=== PATIENT | male | born 1950 | race African-American/Black ===

== ENCOUNTER 2020-01-08 14:21 | Inpatient (IN) ==
[2020-01-08 16:49] LABS: Basophils % 0.2 % (0.0-0.8); Eosinophils % 0.3 % (0.00-10.9); Hematocrit 33.7 VOL% (42.0-52.0); Hemoglobin 10.5 GM/DL (14.0-18.0); Immature Granulocytes % 0.8 %; Immature Granulocytes Absolute 0.09 #; Lymphocytes # 2.1 10*3/uL (1.4-4.0); Lymphocytes % 17.7 % (21.2-54.2); Mean Corpuscular HGB Conc 31.2 GM/DL (32-36); Mean Corpuscular Volume 86.2 FL (87-102); Mean Platelet Volume 8.5 FL (9.6-12.0); Platelet Count 372 T/CUMM (130-400); Red Blood Count 3.91 MC/CUMM (3.8-5.5); Red Cell Distribution Width 14.4 % (9.3-17.3); White Blood Count 11.9 T/CUMM (4-12)
[2020-01-08 16:59] LABS: Apearance,Urine CLEAR (Clear); Bilirubin,Urine Negative (Negative); Blood, Urine Negative (Negative); Glucose,Urine (UA) Negative (Negative); Ketones,Urine Negative (Negative); Nitrite,Urine Negative (Negative); Protein,Urine Negative; RBC,Urine 4 /HPF (0-4); Sperm,Urine Occasional /HPF (Negative); Squamous Epithelial Cell,Urine Occasional /HPF (0-10); Urine Color Yellow (Yellow); Urine Specific Gravity 1.048 (1.001-1.035); Urine Urobilinogen < 2.0 EU/DL (0.2-1.0); WBC,Urine 2 /HPF (0-6)
[2020-01-08 17:05] LABS: Albumin 2.8 G/DL (3.4-5.0); Bilirubin,Total 0.4 MG/DL (0.2-1.0); Calcium 10.5 MG/DL (8.5-10.1); Osmolality,Calculated 276.2 MOS/KG (273-304); Total Protein 8.1 G/DL (6.4-8.3)
[2020-01-08] MEDS ORDERED: LEVOFLOXACIN INJ 500 MG in PREMIX 1 EACH IV STA (17:24)
[2020-01-08] MEDS ORDERED: SODIUM CHLORIDE 0.9% 1,000 ML IV STA (17:24)
[2020-01-08] MEDS ORDERED: GLUCAGON 1 MG VIAL IM PRN (17:47)
[2020-01-08] MEDS ORDERED: DEXTROSE 50% 25 GM/50 ML VIAL IV PRN (17:47)
[2020-01-08] MEDS ORDERED: cefTRIAXone 1,000 MG in SODIUM CHLORIDE 0.9% 100 ML IV SCH (18:30)
[2020-01-08] MEDS ORDERED: LORazepam 2 MG/1 ML VIAL IV PRN (21:00)
[2020-01-08] MEDS: SODIUM CHLORIDE 0.9% 1,000 ML IV SCH (22:17)
[2020-01-08] MEDS: INSULIN LISPRO 100 UNIT/ML SUBCUT SCH (22:18)
[2020-01-09] MEDS: ACETAMINOPHEN 325 MG TABLET PO PRN (00:51)
[2020-01-09 06:31] LABS: Basophils % 0.3 % (0.0-0.8); Eosinophils # 0.1 10*3/uL (0.0-0.87); Eosinophils % 0.8 % (0.00-10.9); Hematocrit 29.8 VOL% (42.0-52.0); Hemoglobin 9.6 GM/DL (14.0-18.0); Immature Granulocytes % 0.5 %; Immature Granulocytes Absolute 0.05 #; Lymphocytes # 2.9 10*3/uL (1.4-4.0); Lymphocytes % 28.1 % (21.2-54.2); Mean Corpuscular HGB Conc 32.2 GM/DL (32-36); Mean Corpuscular Volume 83.9 FL (87-102); Mean Platelet Volume 8.7 FL (9.6-12.0); Monocytes % 8.4 % (1.7-12.7); Neutrophils % 61.9 % (38.7-73.9); Platelet Count 347 T/CUMM (130-400); Red Blood Count 3.55 MC/CUMM (3.8-5.5); Red Cell Distribution Width 14.4 % (9.3-17.3); White Blood Count 10.3 T/CUMM (4-12)
[2020-01-09 07:07] LABS: % Iron Saturation 32.6 % (18-50)
[2020-01-09 07:14] LABS: Calcium 9.8 MG/DL (8.5-10.1); Osmolality,Calculated 288.3 MOS/KG (273-304); Risk Ratio 2.94; Thyroid Stimulating Hormone 1.46 uIU/ml (0.358-3.74); VLDL CHOLESTEROL 14.4 MG/DL
[2020-01-09] MEDS: INSULIN LISPRO 100 UNIT/ML SUBCUT SCH ×4 (07:42→21:32)
[2020-01-09 09:02] LABS: Folate 17.3 NG/ML (5.4-24.0)
[2020-01-09] MEDS: PANTOPRAZOLE 40 MG TABLET PO SCH (10:36)
[2020-01-09] MEDS: SODIUM CHLORIDE 0.9% 1,000 ML IV SCH (10:37)
[2020-01-09] MEDS: cefTRIAXone 1,000 MG in SYRINGE 1 EACH IV SCH (10:37)
[2020-01-09] MEDS: atenoloL 50 MG TABLET PO SCH (14:50)
[2020-01-09] MEDS: ASPIRIN 325 MG TABLET PO SCH (14:50)
[2020-01-09] MEDS: lisinopriL 20 MG TABLET PO SCH (14:50)
[2020-01-09] MEDS: hydroCHLOROthiazide 25 MG TABLET PO SCH (14:50)
[2020-01-09] MEDS: ATORVASTATIN 40 MG TABLET PO SCH (14:50)
[2020-01-09] MEDS: PENTOXIFYLLINE 400 MG TABLET PO SCH ×2 (14:50→21:31)
[2020-01-09] MEDS: oxyCODONE/ACETAMINOPHEN 5-325 MG TABLET PO PRN (18:05)
[2020-01-09] MEDS: GABAPENTIN 300 MG CAPSULE PO SCH ×2 (18:06→21:31)
[2020-01-10 06:01] LABS: Basophils % 0.1 % (0.0-0.8); Eosinophils # 0.1 10*3/uL (0.0-0.87); Eosinophils % 0.7 % (0.00-10.9); Hematocrit 31.4 VOL% (42.0-52.0); Hemoglobin 9.8 GM/DL (14.0-18.0); Immature Granulocytes % 0.4 %; Immature Granulocytes Absolute 0.04 #; Lymphocytes # 2.2 10*3/uL (1.4-4.0); Lymphocytes % 20.8 % (21.2-54.2); Mean Corpuscular HGB Conc 31.2 GM/DL (32-36); Mean Corpuscular Volume 85.6 FL (87-102); Mean Platelet Volume 8.4 FL (9.6-12.0); Monocytes % 7.5 % (1.7-12.7); Neutrophils % 70.5 % (38.7-73.9); Platelet Count 333 T/CUMM (130-400); Red Blood Count 3.67 MC/CUMM (3.8-5.5); Red Cell Distribution Width 14.3 % (9.3-17.3); White Blood Count 10.7 T/CUMM (4-12)
[2020-01-10 06:25] LABS: Calcium 9.6 MG/DL (8.5-10.1); Osmolality,Calculated 279.4 MOS/KG (273-304)
[2020-01-10] MEDS: INSULIN LISPRO 100 UNIT/ML SUBCUT SCH ×4 (07:09→21:02)
[2020-01-10] MEDS: SODIUM CHLORIDE 0.9% 1,000 ML IV SCH ×3 (09:56→23:48)
[2020-01-10] MEDS: lisinopriL 20 MG TABLET PO SCH (10:40)
[2020-01-10] MEDS: hydroCHLOROthiazide 25 MG TABLET PO SCH (10:40)
[2020-01-10] MEDS: ASPIRIN 325 MG TABLET PO SCH (10:40)
[2020-01-10] MEDS: ATORVASTATIN 40 MG TABLET PO SCH (10:41)
[2020-01-10] MEDS: atenoloL 50 MG TABLET PO SCH (10:41)
[2020-01-10] MEDS: PENTOXIFYLLINE 400 MG TABLET PO SCH ×2 (10:41→21:02)
[2020-01-10] MEDS: cefTRIAXone 1,000 MG in SYRINGE 1 EACH IV SCH (10:41)
[2020-01-10] MEDS: PANTOPRAZOLE 40 MG TABLET PO SCH (10:41)
[2020-01-10] MEDS: GABAPENTIN 300 MG CAPSULE PO SCH ×3 (10:44→21:02)
[2020-01-10] MEDS: oxyCODONE/ACETAMINOPHEN 5-325 MG TABLET PO PRN ×2 (10:55→21:01)
[2020-01-10] MEDS ORDERED: ceFAZolin 1,000 MG in SYRINGE 1 EACH IV ONE (14:56)
[2020-01-11 06:08] LABS: Basophils % 0.3 % (0.0-0.8); Eosinophils # 0.1 10*3/uL (0.0-0.87); Hematocrit 27.4 VOL% (42.0-52.0); Hemoglobin 8.6 GM/DL (14.0-18.0); Immature Granulocytes % 0.6 %; Immature Granulocytes Absolute 0.06 #; Lymphocytes # 2.5 10*3/uL (1.4-4.0); Lymphocytes % 23.7 % (21.2-54.2); Mean Corpuscular HGB Conc 31.4 GM/DL (32-36); Mean Corpuscular Volume 84.8 FL (87-102); Mean Platelet Volume 8.7 FL (9.6-12.0); Neutrophils % 66.4 % (38.7-73.9); Platelet Count 306 T/CUMM (130-400); Red Blood Count 3.23 MC/CUMM (3.8-5.5); Red Cell Distribution Width 14.5 % (9.3-17.3); White Blood Count 10.3 T/CUMM (4-12)
[2020-01-11] MEDS ORDERED: LACTATED RINGERS 1,000 ML IV SCH (06:30)
[2020-01-11 07:04] LABS: Calcium 9.5 MG/DL (8.5-10.1); Osmolality,Calculated 276.5 MOS/KG (273-304)
[2020-01-11] MEDS ORDERED: ceFAZolin 1,000 MG in SYRINGE 1 EACH IV ONE (07:30)
[2020-01-11] MEDS ORDERED: BUPIVACAINE 0.5% 50 ML VIAL ONE (08:36)
[2020-01-11] MEDS: cefTRIAXone 1,000 MG in SYRINGE 1 EACH IV SCH (08:44)
[2020-01-11] MEDS ORDERED: GLUCAGON 1 MG VIAL IM PRN (09:34)
[2020-01-11] MEDS ORDERED: DEXTROSE 50% 25 GM/50 ML VIAL IV PRN (09:34)
[2020-01-11] MEDS: hydroCHLOROthiazide 25 MG TABLET PO SCH (09:42)
[2020-01-11] MEDS: ATORVASTATIN 40 MG TABLET PO SCH (09:42)
[2020-01-11] MEDS: ASPIRIN 325 MG TABLET PO SCH (09:42)
[2020-01-11] MEDS: GABAPENTIN 300 MG CAPSULE PO SCH ×3 (09:42→21:32)
[2020-01-11] MEDS: INSULIN LISPRO 100 UNIT/ML SUBCUT SCH ×4 (09:42→21:36)
[2020-01-11] MEDS: PENTOXIFYLLINE 400 MG TABLET PO SCH ×2 (09:43→21:32)
[2020-01-11] MEDS: atenoloL 50 MG TABLET PO SCH (09:43)
[2020-01-11] MEDS: lisinopriL 20 MG TABLET PO SCH (09:43)
[2020-01-11] MEDS: PANTOPRAZOLE 40 MG TABLET PO SCH (09:43)
[2020-01-11] MEDS ORDERED: propofoL 200 MG/20 ML VIAL IV ONE (10:11)
[2020-01-11] MEDS ORDERED: fentaNYL 100 MCG/2 ML VIAL ONE (10:11)
[2020-01-11] MEDS ORDERED: MIDAZOLAM 2 MG/2 ML VIAL ONE (10:11)
[2020-01-11] MEDS ORDERED: SODIUM CHLORIDE 0.9% 100 ML IV ONE (10:11)
[2020-01-11] MEDS ORDERED: ESMOLOL 100 MG/10 ML VIAL IV ONE (10:11)
[2020-01-11] MEDS ORDERED: LIDOCAINE 2% 5 ML VIAL ONE (10:11)
[2020-01-11] MEDS: INSULIN REGULAR 100 UNIT/ML SUBCUT SCH ×3 (11:37→21:36)
[2020-01-11] MEDS: oxyCODONE/ACETAMINOPHEN 5-325 MG TABLET PO PRN (12:15)
[2020-01-11] MEDS: SODIUM CHLORIDE 0.9% 1,000 ML IV SCH (12:59)
[2020-01-12] MEDS: ACETAMINOPHEN 325 MG TABLET PO PRN (01:10)
[2020-01-12] MEDS: SODIUM CHLORIDE 0.9% 1,000 ML IV SCH ×2 (01:19→14:59)
[2020-01-12 04:32] LABS: Basophils % 0.1 % (0.0-0.8); Eosinophils % 0.2 % (0.00-10.9); Hematocrit 26.5 VOL% (42.0-52.0); Hemoglobin 8.4 GM/DL (14.0-18.0); Immature Granulocytes % 0.6 %; Immature Granulocytes Absolute 0.06 #; Lymphocytes # 1.9 10*3/uL (1.4-4.0); Lymphocytes % 19.7 % (21.2-54.2); Mean Corpuscular HGB Conc 31.7 GM/DL (32-36); Mean Corpuscular Volume 84.4 FL (87-102); Mean Platelet Volume 8.5 FL (9.6-12.0); Monocytes % 8.2 % (1.7-12.7); Neutrophils % 71.2 % (38.7-73.9); Platelet Count 321 T/CUMM (130-400); Red Blood Count 3.14 MC/CUMM (3.8-5.5); Red Cell Distribution Width 14.4 % (9.3-17.3); White Blood Count 9.4 T/CUMM (4-12)
[2020-01-12 04:51] LABS: Calcium 9.4 MG/DL (8.5-10.1); Osmolality,Calculated 278.4 MOS/KG (273-304)
[2020-01-12] MEDS ORDERED: MAGNESIUM SULF RIDER 4 GM in PREMIX 1 EACH IV PRN (06:54)
[2020-01-12] MEDS ORDERED: MAGNESIUM SULF RIDER 2 GM in PREMIX 1 EACH IV PRN (06:54)
[2020-01-12] MEDS: INSULIN LISPRO 100 UNIT/ML SUBCUT SCH ×4 (07:31→22:16)
[2020-01-12] MEDS: INSULIN REGULAR 100 UNIT/ML SUBCUT SCH ×4 (08:50→22:16)
[2020-01-12] MEDS: oxyCODONE/ACETAMINOPHEN 5-325 MG TABLET PO PRN ×2 (08:51→22:16)
[2020-01-12] MEDS: GABAPENTIN 300 MG CAPSULE PO SCH ×3 (08:52→22:16)
[2020-01-12] MEDS: lisinopriL 20 MG TABLET PO SCH (08:53)
[2020-01-12] MEDS: PANTOPRAZOLE 40 MG TABLET PO SCH (08:53)
[2020-01-12] MEDS: POTASSIUM CHLORIDE 20 MEQ TABLET PO PRN ×3 (08:54→13:54)
[2020-01-12] MEDS: ASPIRIN 325 MG TABLET PO SCH (08:54)
[2020-01-12] MEDS: hydroCHLOROthiazide 25 MG TABLET PO SCH (08:54)
[2020-01-12] MEDS: cefTRIAXone 1,000 MG in SYRINGE 1 EACH IV SCH (08:55)
[2020-01-12] MEDS: PENTOXIFYLLINE 400 MG TABLET PO SCH ×2 (08:55→22:15)
[2020-01-12] MEDS: atenoloL 50 MG TABLET PO SCH (08:55)
[2020-01-12] MEDS: ATORVASTATIN 40 MG TABLET PO SCH (08:55)
[2020-01-13 05:43] LABS: Basophils % 0.3 % (0.0-0.8); Eosinophils # 0.1 10*3/uL (0.0-0.87); Eosinophils % 0.5 % (0.00-10.9); Hematocrit 29.3 VOL% (42.0-52.0); Immature Granulocytes % 0.9 %; Lymphocytes # 2.4 10*3/uL (1.4-4.0); Lymphocytes % 21.6 % (21.2-54.2); Mean Corpuscular HGB Conc 30.7 GM/DL (32-36); Mean Corpuscular Volume 86.9 FL (87-102); Mean Platelet Volume 9.1 FL (9.6-12.0); Monocytes % 10.2 % (1.7-12.7); Neutrophils % 66.5 % (38.7-73.9); Platelet Count 335 T/CUMM (130-400); Red Blood Count 3.37 MC/CUMM (3.8-5.5); Red Cell Distribution Width 14.6 % (9.3-17.3); White Blood Count 11.3 T/CUMM (4-12)
[2020-01-13 07:01] LABS: Calcium 9.5 MG/DL (8.5-10.1)
[2020-01-13] MEDS: oxyCODONE/ACETAMINOPHEN 5-325 MG TABLET PO PRN ×2 (08:51→15:52)
[2020-01-13] MEDS: PENTOXIFYLLINE 400 MG TABLET PO SCH ×2 (08:52→21:20)
[2020-01-13] MEDS: atenoloL 50 MG TABLET PO SCH (08:52)
[2020-01-13] MEDS: lisinopriL 20 MG TABLET PO SCH (08:53)
[2020-01-13] MEDS: hydroCHLOROthiazide 25 MG TABLET PO SCH (08:53)
[2020-01-13] MEDS: ASPIRIN 325 MG TABLET PO SCH (08:53)
[2020-01-13] MEDS: ATORVASTATIN 40 MG TABLET PO SCH (08:53)
[2020-01-13] MEDS: cefTRIAXone 1,000 MG in SYRINGE 1 EACH IV SCH (08:53)
[2020-01-13] MEDS: PANTOPRAZOLE 40 MG TABLET PO SCH (08:53)
[2020-01-13] MEDS: GABAPENTIN 300 MG CAPSULE PO SCH ×3 (08:53→21:23)
[2020-01-13] MEDS: SODIUM CHLORIDE 0.9% 1,000 ML IV SCH ×2 (08:54→21:20)
[2020-01-13] MEDS: INSULIN REGULAR 100 UNIT/ML SUBCUT SCH ×4 (11:03→21:21)
[2020-01-13] MEDS: INSULIN LISPRO 100 UNIT/ML SUBCUT SCH ×4 (11:04→21:22)
[2020-01-13] MEDS ORDERED: POLYETHYLENE GLYCOL POWDER 17 GM PACK PO PRN (22:16)
[2020-01-13] MEDS ORDERED: MAGNESIUM HYDROXIDE SUSP 30 ML UDCUP PO PRN (22:17)
[2020-01-14 06:28] LABS: Basophils % 0.3 % (0.0-0.8); Eosinophils # 0.1 10*3/uL (0.0-0.87); Eosinophils % 0.9 % (0.00-10.9); Hematocrit 27.4 VOL% (42.0-52.0); Hemoglobin 8.6 GM/DL (14.0-18.0); Immature Granulocytes % 0.6 %; Immature Granulocytes Absolute 0.06 #; Lymphocytes # 1.9 10*3/uL (1.4-4.0); Lymphocytes % 20.6 % (21.2-54.2); Mean Corpuscular HGB Conc 31.4 GM/DL (32-36); Mean Corpuscular Volume 84.6 FL (87-102); Mean Platelet Volume 8.9 FL (9.6-12.0); Monocytes % 6.9 % (1.7-12.7); Neutrophils % 70.7 % (38.7-73.9); Platelet Count 348 T/CUMM (130-400); Red Blood Count 3.24 MC/CUMM (3.8-5.5); Red Cell Distribution Width 14.7 % (9.3-17.3); White Blood Count 9.3 T/CUMM (4-12)
[2020-01-14 06:48] LABS: Calcium 9.4 MG/DL (8.5-10.1); Osmolality,Calculated 274.7 MOS/KG (273-304)
[2020-01-14] MEDS ORDERED: PHENYLEPHRINE DRIP 20 MG/250 ML PREMIX IV ONE (06:49)
[2020-01-14] MEDS ORDERED: NITROGLYCERIN DRIP 50 MG/250 ML BOTTLE IV ONE ×2 (06:49→19:22)
[2020-01-14] MEDS ORDERED: HEPARIN/NACL 0.9% 2 UNITS/ML 500 ML IV ONE (06:49)
[2020-01-14] MEDS ORDERED: DEXMEDETOMIDINE 200 MCG/2 ML VIAL ONE (06:49)
[2020-01-14] MEDS ORDERED: MORPHINE 10 MG/10 ML VIAL ONE (06:49)
[2020-01-14] MEDS: INSULIN LISPRO 100 UNIT/ML SUBCUT SCH ×4 (07:32→20:35)
[2020-01-14] MEDS: INSULIN REGULAR 100 UNIT/ML SUBCUT SCH ×4 (07:32→20:35)
[2020-01-14] MEDS: atenoloL 50 MG TABLET PO SCH ×2 (07:37→08:52)
[2020-01-14] MEDS: lisinopriL 20 MG TABLET PO SCH ×2 (07:37→08:52)
[2020-01-14] MEDS: SODIUM CHLORIDE 0.9% 1,000 ML IV SCH (07:50)
[2020-01-14] MEDS: PENTOXIFYLLINE 400 MG TABLET PO SCH (09:00)
[2020-01-14] MEDS: ASPIRIN 325 MG TABLET PO SCH (09:00)
[2020-01-14] MEDS ORDERED: VANCOMYCIN INJ 1,000 MG in SODIUM CHLORIDE 0.9% 250 ML IV ONE (09:36)
[2020-01-14] MEDS: cefTRIAXone 1,000 MG in SYRINGE 1 EACH IV SCH (10:36)
[2020-01-14] MEDS ORDERED: SUGAMMADEX 200 MG/2 ML VIAL IV ONE (11:01)
[2020-01-14 12:00] LABS: Apearance,Urine CLEAR (Clear); Bilirubin,Urine Negative (Negative); Blood, Urine Small mg/dL (Negative); Glucose,Urine (UA) Negative (Negative); Ketones,Urine Negative (Negative); Mucus,Urine Occasional /LPF (Occasional); Nitrite,Urine Negative (Negative); Protein,Urine Negative; RBC,Urine 3 /HPF (0-4); Urine Color Yellow (Yellow); Urine Specific Gravity 1.015 (1.001-1.035); WBC,Urine <1 /HPF (0-6)
[2020-01-14 12:13] LABS: Hematocrit 27.9 VOL% (42.0-52.0); Hemoglobin 8.9 GM/DL (14.0-18.0)
[2020-01-14] MEDS ORDERED: MIDAZOLAM 2 MG/2 ML VIAL IV ONE (12:18)
[2020-01-14 12:29] LABS: Calcium 9.2 MG/DL (8.5-10.1); Osmolality,Calculated 274.7 MOS/KG (273-304)
[2020-01-14] MEDS ORDERED: LIDOCAINE 2% 5 ML VIAL ONE (12:43)
[2020-01-14] MEDS ORDERED: KETOROLAC 30 MG/1 ML VIAL ONE (12:43)
[2020-01-14] MEDS ORDERED: DESFLURANE 1 UNIT/15 MINUTE INH ONE (12:43)
[2020-01-14] MEDS ORDERED: ALBUMIN 5% 12.5 GM/250 ML VIAL IV ONE (12:43)
[2020-01-14] MEDS ORDERED: HEPARIN 10,000 UNIT/10 ML VIAL ONE (12:43)
[2020-01-14] MEDS ORDERED: SODIUM CHLORIDE 0.9% 1,000 ML IV ONE (12:44)
[2020-01-14] MEDS ORDERED: ETOMIDATE 40 MG/20 ML VIAL IV ONE (12:44)
[2020-01-14] MEDS ORDERED: PROTAMINE SULFATE 50 MG/5 ML VIAL IV ONE (12:44)
[2020-01-14] MEDS ORDERED: LACTATED RINGERS 1,000 ML IV ONE (12:44)
[2020-01-14] MEDS ORDERED: ROCURONIUM 100 MG/10 ML VIAL IV ONE (12:44)
[2020-01-14] MEDS: ATORVASTATIN 40 MG TABLET PO SCH (13:43)
[2020-01-14] MEDS: hydroCHLOROthiazide 25 MG TABLET PO SCH (13:43)
[2020-01-14] MEDS: GABAPENTIN 300 MG CAPSULE PO SCH ×2 (13:44→18:13)
[2020-01-14] MEDS: PANTOPRAZOLE 40 MG TABLET PO SCH (13:44)
[2020-01-14] MEDS ORDERED: PHENYLEPHRINE DRIP 40 MG/250 ML PREMIX IV PRN (13:45)
[2020-01-14] MEDS: fentaNYL 2 MCG/ROPIV 0.2% EPID 100 ML EPIDURAL SCH (13:45)
[2020-01-14] MEDS: LACTATED RINGERS 1,000 ML IV SCH (13:46)
[2020-01-14] MEDS ORDERED: PHENYLEPHRINE DRIP 40 MG/250 ML PREMIX IV ONE (13:50)
[2020-01-14] MEDS: cefOXitin 1,000 MG in SYRINGE 1 EACH IV SCH (16:00)
[2020-01-14] MEDS ORDERED: SODIUM CHLORIDE 0.9% 1,000 ML IV PRN (16:23)
[2020-01-14] MEDS: METOCLOPRAMIDE 10 MG/2 ML VIAL IV SCH (18:29)
[2020-01-14] MEDS ORDERED: METOPROLOL TARTRATE 5 MG/5 ML VIAL IV ONE (19:13)
[2020-01-14] MEDS: METOPROLOL TARTRATE 5 MG/5 ML VIAL IV SCH (19:15)
[2020-01-14] MEDS ORDERED: NITROGLYCERIN DRIP 50 MG/250 ML BOTTLE IV PRN (19:20)
[2020-01-14] MEDS: VANCOMYCIN INJ 1,000 MG in SODIUM CHLORIDE 0.9% 250 ML IV SCH (20:49)
[2020-01-15] MEDS: cefOXitin 1,000 MG in SYRINGE 1 EACH IV SCH ×3 (00:04→19:09)
[2020-01-15] MEDS: METOCLOPRAMIDE 10 MG/2 ML VIAL IV SCH ×4 (00:08→19:10)
[2020-01-15] MEDS: METOPROLOL TARTRATE 5 MG/5 ML VIAL IV SCH ×5 (00:12→19:09)
[2020-01-15] MEDS: LACTATED RINGERS 1,000 ML IV SCH ×4 (00:14→19:02)
[2020-01-15 05:52] LABS: Basophils % 0.1 % (0.0-0.8); Eosinophils % 0.1 % (0.00-10.9); Hematocrit 30.1 VOL% (42.0-52.0); Hemoglobin 9.8 GM/DL (14.0-18.0); Immature Granulocytes % 0.9 %; Immature Granulocytes Absolute 0.11 #; Lymphocytes # 1.2 10*3/uL (1.4-4.0); Lymphocytes % 9.8 % (21.2-54.2); Mean Corpuscular HGB Conc 32.6 GM/DL (32-36); Mean Corpuscular Volume 85.5 FL (87-102); Mean Platelet Volume 8.6 FL (9.6-12.0); Monocytes % 5.2 % (1.7-12.7); Neutrophils % 83.9 % (38.7-73.9); Platelet Count 275 T/CUMM (130-400); Red Blood Count 3.52 MC/CUMM (3.8-5.5); Red Cell Distribution Width 14.7 % (9.3-17.3); White Blood Count 11.9 T/CUMM (4-12)
[2020-01-15 06:00] LABS: Calcium 8.8 MG/DL (8.5-10.1); Osmolality,Calculated 277.7 MOS/KG (273-304)
[2020-01-15 06:11] LABS: Band Neutrophils 1 % (0-10); Hypochromasia 1+; Lymphocytes 11 % (20-55); Ovalocytes Slight; Platelet Estimate Adequate; Segmented Neutrophils 81 % (50-85); Total Cells Counted 100
[2020-01-15] MEDS: fentaNYL 2 MCG/ROPIV 0.2% EPID 100 ML EPIDURAL SCH ×2 (06:20→08:58)
[2020-01-15] MEDS: INSULIN REGULAR 100 UNIT/ML SUBCUT SCH ×4 (07:34→21:21)
[2020-01-15] MEDS: VANCOMYCIN INJ 1,000 MG in SODIUM CHLORIDE 0.9% 250 ML IV SCH ×2 (09:14→21:37)
[2020-01-15] MEDS: SODIUM HYPOCHLORITE 0.25% IRRIG 473 ML BOTTLE TOP SCH (11:29)
[2020-01-15] MEDS: ONDANSETRON 4 MG/2 ML VIAL IV PRN (23:32)
[2020-01-16] MEDS: METOPROLOL TARTRATE 5 MG/5 ML VIAL IV SCH ×4 (01:08→17:25)
[2020-01-16] MEDS: METOCLOPRAMIDE 10 MG/2 ML VIAL IV SCH ×4 (01:09→17:28)
[2020-01-16] MEDS: cefOXitin 1,000 MG in SYRINGE 1 EACH IV SCH ×3 (01:09→18:41)
[2020-01-16] MEDS: fentaNYL 2 MCG/ROPIV 0.2% EPID 100 ML EPIDURAL SCH ×3 (02:12→20:53)
[2020-01-16] MEDS: LACTATED RINGERS 1,000 ML IV SCH (03:05)
[2020-01-16 03:55] LABS: Basophils % 0.1 % (0.0-0.8); Hematocrit 34.8 VOL% (42.0-52.0); Hemoglobin 11.1 GM/DL (14.0-18.0); Immature Granulocytes % 1.2 %; Immature Granulocytes Absolute 0.18 #; Lymphocytes # 1.1 10*3/uL (1.4-4.0); Lymphocytes % 7.2 % (21.2-54.2); Mean Corpuscular HGB Conc 31.9 GM/DL (32-36); Mean Corpuscular Volume 87.4 FL (87-102); Mean Platelet Volume 8.4 FL (9.6-12.0); Monocytes % 4.5 % (1.7-12.7); Platelet Count 344 T/CUMM (130-400); Red Blood Count 3.98 MC/CUMM (3.8-5.5); White Blood Count 15.4 T/CUMM (4-12)
[2020-01-16 04:29] LABS: Band Neutrophils 1 % (0-10); Lymphocytes 5 % (20-55); Platelet Estimate Adequate; Segmented Neutrophils 92 % (50-85); Total Cells Counted 100
[2020-01-16 04:30] LABS: Hypochromasia 1+; Microcytosis Slight
[2020-01-16 04:40] LABS: Calcium 9.3 MG/DL (8.5-10.1); Osmolality,Calculated 279.5 MOS/KG (273-304)
[2020-01-16] MEDS: VANCOMYCIN INJ 1,000 MG in SODIUM CHLORIDE 0.9% 250 ML IV SCH ×2 (09:13→21:37)
[2020-01-16] MEDS: SODIUM HYPOCHLORITE 0.25% IRRIG 473 ML BOTTLE TOP SCH (09:14)
[2020-01-16] MEDS: INSULIN REGULAR 100 UNIT/ML SUBCUT SCH ×4 (09:14→20:42)
[2020-01-16] MEDS ORDERED: GLUCAGON 1 MG VIAL IM PRN (17:01)
[2020-01-16] MEDS ORDERED: DEXTROSE 50% 25 GM/50 ML VIAL IV PRN (17:01)
[2020-01-16] MEDS: ONDANSETRON 4 MG/2 ML VIAL IV PRN (21:33)
[2020-01-17] MEDS: METOPROLOL TARTRATE 5 MG/5 ML VIAL IV SCH ×4 (00:02→18:05)
[2020-01-17] MEDS: cefOXitin 1,000 MG in SYRINGE 1 EACH IV SCH ×3 (00:51→16:49)
[2020-01-17] MEDS: METOCLOPRAMIDE 10 MG/2 ML VIAL IV SCH ×4 (00:57→18:05)
[2020-01-17 05:02] LABS: Osmolality,Calculated 277.8 MOS/KG (273-304)
[2020-01-17] MEDS: ONDANSETRON 4 MG/2 ML VIAL IV PRN (09:05)
[2020-01-17] MEDS: VANCOMYCIN INJ 1,000 MG in SODIUM CHLORIDE 0.9% 250 ML IV SCH ×2 (09:12→21:30)
[2020-01-17] MEDS: INSULIN REGULAR 100 UNIT/ML SUBCUT SCH ×4 (10:14→20:58)
[2020-01-17] MEDS ORDERED: VANCOMYCIN 500 MG VIAL ONE (10:19)
[2020-01-17] MEDS ORDERED: PHENYLEPHRINE DRIP 20 MG/250 ML PREMIX IV ONE (12:12)
[2020-01-17] MEDS ORDERED: propofoL 200 MG/20 ML VIAL IV ONE (12:12)
[2020-01-17] MEDS ORDERED: MIDAZOLAM 2 MG/2 ML VIAL ONE (12:12)
[2020-01-17] MEDS ORDERED: SEVOFLURANE 1 UNIT/15 MINUTE INH ONE (12:12)
[2020-01-17] MEDS ORDERED: DEXAMETHASONE 4 MG/1 ML VIAL ONE (12:13)
[2020-01-17] MEDS ORDERED: ONDANSETRON 4 MG/2 ML VIAL ONE (12:13)
[2020-01-17] MEDS ORDERED: METOPROLOL TARTRATE 5 MG/5 ML VIAL IV ONE (12:13)
[2020-01-17] MEDS ORDERED: fentaNYL 100 MCG/2 ML VIAL ONE (12:13)
[2020-01-17] MEDS ORDERED: ETOMIDATE 40 MG/20 ML VIAL IV ONE (12:13)
[2020-01-17] MEDS ORDERED: PHENYLEPHRINE 1 MG/10 ML SYRINGE IV ONE (12:13)
[2020-01-17] MEDS ORDERED: LIDOCAINE 2% 5 ML VIAL ONE (12:14)
[2020-01-17] MEDS: SODIUM HYPOCHLORITE 0.25% IRRIG 473 ML BOTTLE TOP SCH (13:54)
[2020-01-17] MEDS: fentaNYL 2 MCG/ROPIV 0.2% EPID 100 ML EPIDURAL SCH ×3 (14:53→20:58)
[2020-01-18] MEDS: METOPROLOL TARTRATE 5 MG/5 ML VIAL IV SCH ×2 (00:28→06:24)
[2020-01-18] MEDS: METOCLOPRAMIDE 10 MG/2 ML VIAL IV SCH ×2 (01:18→05:13)
[2020-01-18] MEDS: cefOXitin 1,000 MG in SYRINGE 1 EACH IV SCH ×2 (01:20→07:53)
[2020-01-18 06:24] LABS: Basophils % 0.1 % (0.0-0.8); Eosinophils # 0.1 10*3/uL (0.0-0.87); Eosinophils % 0.7 % (0.00-10.9); Hematocrit 28.5 VOL% (42.0-52.0); Hemoglobin 9.3 GM/DL (14.0-18.0); Immature Granulocytes % 1.1 %; Immature Granulocytes Absolute 0.13 #; Lymphocytes # 1.3 10*3/uL (1.4-4.0); Mean Corpuscular HGB Conc 32.6 GM/DL (32-36); Mean Corpuscular Volume 85.8 FL (87-102); Mean Platelet Volume 8.7 FL (9.6-12.0); NRBC # 0.05 10*3/uL; Neutrophils % 81.1 % (38.7-73.9); Platelet Count 338 T/CUMM (130-400); Red Blood Count 3.32 MC/CUMM (3.8-5.5); Red Cell Distribution Width 15.5 % (9.3-17.3); White Blood Count 12.1 T/CUMM (4-12)
[2020-01-18 06:44] LABS: Calcium 9.1 MG/DL (8.5-10.1); Osmolality,Calculated 286.4 MOS/KG (273-304); Osmolality,Calculated 287.3 MOS/KG (273-304)
[2020-01-18] MEDS: ONDANSETRON 4 MG/2 ML VIAL IV PRN ×2 (07:50→17:39)
[2020-01-18] MEDS: INSULIN REGULAR 100 UNIT/ML SUBCUT SCH ×4 (08:33→22:07)
[2020-01-18] MEDS ORDERED: VANCOMYCIN INJ 1,000 MG in SODIUM CHLORIDE 0.9% 250 ML IV SCH (09:00)
[2020-01-18] MEDS: atenoloL 50 MG TABLET PO SCH (09:50)
[2020-01-18] MEDS: AMOXICILLIN/CLAV 875 MG TABLET PO SCH ×2 (09:50→16:50)
[2020-01-18] MEDS: METOCLOPRAMIDE 5 MG TABLET PO SCH ×3 (12:38→21:21)
[2020-01-19] MEDS: INSULIN REGULAR 100 UNIT/ML SUBCUT SCH ×4 (07:37→21:08)
[2020-01-19] MEDS: METOCLOPRAMIDE 5 MG TABLET PO SCH ×4 (07:37→21:08)
[2020-01-19] MEDS: ENOXAPARIN 40 MG/0.4 ML SYRINGE SUBCUT SCH (08:51)
[2020-01-19] MEDS: AMOXICILLIN/CLAV 875 MG TABLET PO SCH ×2 (08:51→16:46)
[2020-01-19] MEDS: atenoloL 50 MG TABLET PO SCH (08:51)
[2020-01-19] MEDS ORDERED: POTASSIUM CHLORIDE 20 MEQ TABLET PO PRN (11:53)
[2020-01-19] MEDS: POTASSIUM CHLORIDE 20 MEQ TABLET PO PRN ×2 (12:44→16:46)
[2020-01-19] MEDS: ONDANSETRON 4 MG/2 ML VIAL IV PRN (23:07)
[2020-01-20 05:19] LABS: Basophils % 0.1 % (0.0-0.8); Eosinophils % 0.4 % (0.00-10.9); Hematocrit 29.5 VOL% (42.0-52.0); Hemoglobin 9.4 GM/DL (14.0-18.0); Immature Granulocytes % 2.5 %; Immature Granulocytes Absolute 0.27 #; Lymphocytes # 1.5 10*3/uL (1.4-4.0); Lymphocytes % 13.3 % (21.2-54.2); Mean Corpuscular HGB Conc 31.9 GM/DL (32-36); Mean Corpuscular Volume 88.1 FL (87-102); Mean Platelet Volume 8.4 FL (9.6-12.0); Monocytes % 6.9 % (1.7-12.7); NRBC # 0.12 10*3/uL; Neutrophils % 76.8 % (38.7-73.9); Platelet Count 352 T/CUMM (130-400); Red Blood Count 3.35 MC/CUMM (3.8-5.5); Red Cell Distribution Width 15.6 % (9.3-17.3)
[2020-01-20 05:36] LABS: Calcium 8.9 MG/DL (8.5-10.1)
[2020-01-20] MEDS: INSULIN REGULAR 100 UNIT/ML SUBCUT SCH ×4 (08:23→20:48)
[2020-01-20] MEDS: METOCLOPRAMIDE 5 MG TABLET PO SCH ×4 (08:24→20:46)
[2020-01-20] MEDS: AMOXICILLIN/CLAV 875 MG TABLET PO SCH ×2 (08:24→16:57)
[2020-01-20] MEDS: atenoloL 50 MG TABLET PO SCH (08:24)
[2020-01-20] MEDS: ENOXAPARIN 40 MG/0.4 ML SYRINGE SUBCUT SCH (08:43)
[2020-01-20] MEDS: PANTOPRAZOLE 40 MG VIAL IV SCH ×2 (13:24→20:45)
[2020-01-20] MEDS: SODIUM CHLORIDE 0.9% 1,000 ML IV SCH (13:24)
[2020-01-20] MEDS: MIRTAZAPINE 15 MG TABLET PO SCH (20:46)
[2020-01-21] MEDS: SODIUM CHLORIDE 0.9% 1,000 ML IV SCH ×2 (02:56→16:30)
[2020-01-21 05:56] LABS: Basophils % 0.1 % (0.0-0.8); Eosinophils # 0.2 10*3/uL (0.0-0.87); Eosinophils % 1.6 % (0.00-10.9); Hematocrit 27.5 VOL% (42.0-52.0); Hemoglobin 8.5 GM/DL (14.0-18.0); Immature Granulocytes % 4.5 %; Immature Granulocytes Absolute 0.48 #; Lymphocytes # 1.9 10*3/uL (1.4-4.0); Lymphocytes % 17.4 % (21.2-54.2); Mean Corpuscular HGB Conc 30.9 GM/DL (32-36); Mean Corpuscular Volume 89.9 FL (87-102); Mean Platelet Volume 8.7 FL (9.6-12.0); Monocytes % 6.4 % (1.7-12.7); NRBC # 0.07 10*3/uL; Platelet Count 338 T/CUMM (130-400); Red Blood Count 3.06 MC/CUMM (3.8-5.5); Red Cell Distribution Width 15.5 % (9.3-17.3); White Blood Count 10.7 T/CUMM (4-12)
[2020-01-21 06:18] LABS: Calcium 8.6 MG/DL (8.5-10.1); Osmolality,Calculated 291.8 MOS/KG (273-304)
[2020-01-21] MEDS: atenoloL 50 MG TABLET PO SCH (08:55)
[2020-01-21] MEDS: PANTOPRAZOLE 40 MG VIAL IV SCH ×2 (08:55→21:05)
[2020-01-21] MEDS: METOCLOPRAMIDE 5 MG TABLET PO SCH ×4 (08:55→23:28)
[2020-01-21] MEDS: POTASSIUM CHLORIDE 20 MEQ TABLET PO PRN ×3 (08:55→13:25)
[2020-01-21] MEDS: AMOXICILLIN/CLAV 875 MG TABLET PO SCH ×2 (08:55→18:10)
[2020-01-21] MEDS: INSULIN REGULAR 100 UNIT/ML SUBCUT SCH ×4 (09:04→23:27)
[2020-01-21] MEDS: MIRTAZAPINE 15 MG TABLET PO SCH (21:06)
[2020-01-22] MEDS: SODIUM CHLORIDE 0.9% 1,000 ML IV SCH (05:40)
[2020-01-22 07:17] LABS: Basophils % 0.2 % (0.0-0.8); Eosinophils # 0.2 10*3/uL (0.0-0.87); Eosinophils % 1.5 % (0.00-10.9); Hematocrit 27.4 VOL% (42.0-52.0); Hemoglobin 8.6 GM/DL (14.0-18.0); Immature Granulocytes % 6.2 %; Immature Granulocytes Absolute 0.67 #; Lymphocytes # 1.9 10*3/uL (1.4-4.0); Lymphocytes % 17.3 % (21.2-54.2); Mean Corpuscular HGB Conc 31.4 GM/DL (32-36); Mean Corpuscular Volume 88.7 FL (87-102); Mean Platelet Volume 8.7 FL (9.6-12.0); Monocytes % 5.9 % (1.7-12.7); NRBC # 0.07 10*3/uL; Neutrophils % 68.9 % (38.7-73.9); Platelet Count 316 T/CUMM (130-400); Red Blood Count 3.09 MC/CUMM (3.8-5.5); Red Cell Distribution Width 15.5 % (9.3-17.3); White Blood Count 10.8 T/CUMM (4-12)
[2020-01-22 07:37] LABS: Calcium 8.3 MG/DL (8.5-10.1); Osmolality,Calculated 288.8 MOS/KG (273-304)
[2020-01-22 07:39] LABS: Band Neutrophils 2 % (0-10); Eosinophils 1 % (0-10); Hypochromasia 2+; Lymphocytes 13 % (20-55); Microcytosis Slight; Platelet Estimate Adequate; Segmented Neutrophils 78 % (50-85); Total Cells Counted 100
[2020-01-22] MEDS: AMOXICILLIN/CLAV 875 MG TABLET PO SCH ×2 (08:46→17:40)
[2020-01-22] MEDS: PANTOPRAZOLE 40 MG VIAL IV SCH ×2 (08:46→21:04)
[2020-01-22] MEDS: atenoloL 50 MG TABLET PO SCH (08:46)
[2020-01-22] MEDS: METOCLOPRAMIDE 5 MG TABLET PO SCH ×4 (10:05→20:57)
[2020-01-22] MEDS: INSULIN REGULAR 100 UNIT/ML SUBCUT SCH ×4 (10:05→20:56)
[2020-01-22] MEDS ORDERED: GLUCAGON 1 MG VIAL IM PRN (11:12)
[2020-01-22] MEDS ORDERED: DEXTROSE 50% 25 GM/50 ML VIAL IV PRN (11:12)
[2020-01-22] MEDS: MIRTAZAPINE 15 MG TABLET PO SCH (21:04)
[2020-01-23 06:45] LABS: Basophils % 0.2 % (0.0-0.8); Eosinophils # 0.1 10*3/uL (0.0-0.87); Eosinophils % 0.9 % (0.00-10.9); Hematocrit 29.3 VOL% (42.0-52.0); Hemoglobin 9.1 GM/DL (14.0-18.0); Immature Granulocytes % 4.9 %; Immature Granulocytes Absolute 0.57 #; Lymphocytes # 2.1 10*3/uL (1.4-4.0); Lymphocytes % 17.6 % (21.2-54.2); Mean Corpuscular HGB Conc 31.1 GM/DL (32-36); Mean Corpuscular Volume 89.6 FL (87-102); Mean Platelet Volume 8.9 FL (9.6-12.0); Monocytes % 5.6 % (1.7-12.7); NRBC # 0.11 10*3/uL; Neutrophils % 70.8 % (38.7-73.9); Platelet Count 329 T/CUMM (130-400); Red Blood Count 3.27 MC/CUMM (3.8-5.5); Red Cell Distribution Width 15.6 % (9.3-17.3); White Blood Count 11.7 T/CUMM (4-12)
[2020-01-23 07:08] LABS: Band Neutrophils 1 % (0-10); Hypochromasia 1+; Lymphocytes 12 % (20-55); Microcytosis Slight; Ovalocytes Slight; Platelet Estimate Adequate; Segmented Neutrophils 85 % (50-85); Total Cells Counted 100
[2020-01-23 07:11] LABS: Calcium 8.5 MG/DL (8.5-10.1); Osmolality,Calculated 284.1 MOS/KG (273-304)
[2020-01-23] MEDS: atenoloL 50 MG TABLET PO SCH (08:03)
[2020-01-23] MEDS: AMOXICILLIN/CLAV 875 MG TABLET PO SCH (08:04)
[2020-01-23] MEDS: METOCLOPRAMIDE 5 MG TABLET PO SCH ×2 (08:04→12:37)
[2020-01-23] MEDS: POTASSIUM CHLORIDE 20 MEQ TABLET PO PRN ×3 (08:04→12:38)
[2020-01-23] MEDS: PANTOPRAZOLE 40 MG VIAL IV SCH (08:05)
[2020-01-23] MEDS: INSULIN REGULAR 100 UNIT/ML SUBCUT SCH ×2 (08:38→12:37)
[2020-01-23 11:08] LABS: HIV Antigen/Antibody Result Nonreactive (Nonreactive); Hepatitis B Surface Ag Quant < 0.10 Index; Hepatitis B Surface Ag Result Negative (Negative); Hepatitis C Virus Ab Quant 0.14 Index; Hepatitis C Virus Ab Result Negative (Negative)
[2020-01-23 12:35] VITALS: BP 108/68
== END 2020-01-23 13:34 | DRG 982 ==
LOC: N.ED 14:21 → SUATTDRO 17:46 → N.EDINP 17:46 → N.3E 18:24 → N.ICU 01-14 08:57 → N.5E 01-16 11:18
PROVIDERS: ADMIT Internal Medicine; ATTEND Internal Medicine

== ENCOUNTER 2020-01-30 22:24 | Inpatient (IN) ==
[2020-01-30] MEDS ORDERED: PANTOPRAZOLE 40 MG VIAL IV STA (22:50)
[2020-01-30] MEDS ORDERED: ONDANSETRON 4 MG/2 ML VIAL IV STA (22:50)
[2020-01-30] MEDS ORDERED: SODIUM CHLORIDE 0.9% 500 ML IV STA (22:50)
[2020-01-30 23:35] LABS: Basophils % 0.4 % (0.0-0.8); Eosinophils # 0.1 10*3/uL (0.0-0.87); Eosinophils % 1.7 % (0.00-10.9); Hematocrit 25.1 VOL% (42.0-52.0); Hemoglobin 7.8 GM/DL (14.0-18.0); Immature Granulocytes % 0.9 %; Immature Granulocytes Absolute 0.07 #; Lymphocytes # 1.9 10*3/uL (1.4-4.0); Lymphocytes % 25.5 % (21.2-54.2); Mean Corpuscular HGB Conc 31.1 GM/DL (32-36); Mean Corpuscular Volume 89.6 FL (87-102); Mean Platelet Volume 10.1 FL (9.6-12.0); Monocytes % 8.7 % (1.7-12.7); NRBC # 0.03 10*3/uL; Neutrophils % 62.8 % (38.7-73.9); Platelet Count 189 T/CUMM (130-400); Red Cell Distribution Width 16.7 % (9.3-17.3); White Blood Count 7.6 T/CUMM (4-12)
[2020-01-30 23:45] LABS: PT Patient Result 11.2 SECS (9.8-11.9)
[2020-01-30] MEDS ORDERED: HYDROmorphone 2 MG/1 ML VIAL IV ONE (23:51)
[2020-01-30] MEDS ORDERED: HYDROmorphone 2 MG/1 ML VIAL ONE (23:53)
[2020-01-31] MEDS ORDERED: SODIUM CHLORIDE 0.9% 1,000 ML IV PRN (00:20)
[2020-01-31] MEDS ORDERED: hydrALAZINE 20 MG/1 ML VIAL IV PRN (00:24)
[2020-01-31] MEDS ORDERED: PROMETHAZINE 25 MG TABLET PO PRN (00:24)
[2020-01-31] MEDS ORDERED: ONDANSETRON 4 MG/2 ML VIAL IV PRN (00:24)
[2020-01-31] MEDS ORDERED: DEXTROSE 50% 25 GM/50 ML VIAL IV PRN (00:24)
[2020-01-31] MEDS ORDERED: DOCUSATE SODIUM 100 MG CAPSULE PO PRN (00:24)
[2020-01-31] MEDS ORDERED: GLUCAGON 1 MG VIAL IM PRN (00:24)
[2020-01-31] MEDS ORDERED: ZALEPLON 5 MG CAPSULE PO PRN (00:24)
[2020-01-31] MEDS ORDERED: ACETAMINOPHEN 325 MG TABLET PO PRN (00:24)
[2020-01-31] MEDS ORDERED: guaiFENesin/DM ER 600-30 MG TABLET PO PRN (00:24)
[2020-01-31] MEDS ORDERED: diphenhydrAMINE CAP 25 MG CAPSULE PO PRN (00:24)
[2020-01-31] MEDS ORDERED: NICOTINE 21 MG/24 HR PATCH TRANSDERM PRN (00:24)
[2020-01-31 00:30] LABS: Alanine Aminotransferase 66 U/L (16-61); Albumin 1.9 G/DL (3.4-5.0); Alkaline Phosphatase 110 U/L (45-117); Aspartate Amino Transferase 59 U/L (0-37); Bilirubin,Total < 0.39 MG/DL (0.2-1.0); Blood Urea Nitrogen 18 MG/DL (7-18); Calcium 8.4 MG/DL (8.5-10.1); Estimated Glom Filtration Rate 119 ML/MIN; Glucose 100 MG/DL (74-106); Osmolality,Calculated 284.1 MOS/KG (273-304); Total Protein 5.6 G/DL (6.4-8.3)
[2020-01-31] MEDS ORDERED: MAGNESIUM SULF RIDER 2 GM in PREMIX 1 EACH IV STA (00:41)
[2020-01-31] MEDS: PANTOPRAZOLE INJ 200 MG in SODIUM CHLORIDE 0.9% 250 ML IV SCH (03:27)
[2020-01-31 05:53] LABS: Basophils % 0.4 % (0.0-0.8); Eosinophils # 0.2 10*3/uL (0.0-0.87); Eosinophils % 1.8 % (0.00-10.9); Hematocrit 23.9 VOL% (42.0-52.0); Hemoglobin 7.5 GM/DL (14.0-18.0); Immature Granulocytes % 0.9 %; Immature Granulocytes Absolute 0.07 #; Lymphocytes # 1.9 10*3/uL (1.4-4.0); Mean Corpuscular HGB Conc 31.4 GM/DL (32-36); Mean Corpuscular Volume 90.5 FL (87-102); Mean Platelet Volume 8.9 FL (9.6-12.0); Monocytes % 10.6 % (1.7-12.7); NRBC # 0.02 10*3/uL; Neutrophils % 63.3 % (38.7-73.9); Platelet Count 309 T/CUMM (130-400); Red Blood Count 2.64 MC/CUMM (3.8-5.5); Red Cell Distribution Width 16.1 % (9.3-17.3); White Blood Count 8.2 T/CUMM (4-12)
[2020-01-31 06:03] LABS: Calcium 8.5 MG/DL (8.5-10.1); Osmolality,Calculated 278.5 MOS/KG (273-304)
[2020-01-31] MEDS: INSULIN LISPRO 100 UNIT/ML SUBCUT SCH ×4 (08:46→20:40)
[2020-01-31] MEDS ORDERED: MAGNESIUM SULF RIDER 2 GM in PREMIX 1 EACH IV ONE (09:24)
[2020-02-01 01:02] LABS: Basophils % 0.3 % (0.0-0.8); Eosinophils # 0.2 10*3/uL (0.0-0.87); Eosinophils % 2.1 % (0.00-10.9); Hematocrit 22.5 VOL% (42.0-52.0); Hemoglobin 7.3 GM/DL (14.0-18.0); Immature Granulocytes % 1.2 %; Immature Granulocytes Absolute 0.12 #; Lymphocytes # 2.3 10*3/uL (1.4-4.0); Lymphocytes % 23.4 % (21.2-54.2); Mean Corpuscular HGB Conc 32.4 GM/DL (32-36); Mean Corpuscular Volume 87.2 FL (87-102); Mean Platelet Volume 9.2 FL (9.6-12.0); Monocytes % 9.6 % (1.7-12.7); NRBC # 0.08 10*3/uL; Neutrophils % 63.4 % (38.7-73.9); Platelet Count 277 T/CUMM (130-400); Red Blood Count 2.58 MC/CUMM (3.8-5.5); Red Cell Distribution Width 16.8 % (9.3-17.3); White Blood Count 9.8 T/CUMM (4-12)
[2020-02-01] MEDS ORDERED: SODIUM PHOSPHATE ENEMA 133 ML BOTTLE RECTAL ONE (06:00)
[2020-02-01 06:31] LABS: Basophils % 0.4 % (0.0-0.8); Eosinophils % 0.4 % (0.00-10.9); Hematocrit 23.2 VOL% (42.0-52.0); Hemoglobin 7.4 GM/DL (14.0-18.0); Immature Granulocytes % 1.1 %; Immature Granulocytes Absolute 0.11 #; Lymphocytes # 1.7 10*3/uL (1.4-4.0); Lymphocytes % 17.6 % (21.2-54.2); Mean Corpuscular HGB Conc 31.9 GM/DL (32-36); Mean Corpuscular Volume 87.9 FL (87-102); Mean Platelet Volume 9.7 FL (9.6-12.0); Monocytes % 8.7 % (1.7-12.7); NRBC # 0.07 10*3/uL; Neutrophils % 71.8 % (38.7-73.9); Platelet Count 265 T/CUMM (130-400); Red Blood Count 2.64 MC/CUMM (3.8-5.5); White Blood Count 9.8 T/CUMM (4-12)
[2020-02-01] MEDS: PANTOPRAZOLE INJ 200 MG in SODIUM CHLORIDE 0.9% 250 ML IV SCH (06:37)
[2020-02-01 06:48] LABS: Calcium 8.4 MG/DL (8.5-10.1); Osmolality,Calculated 275.7 MOS/KG (273-304)
[2020-02-01] MEDS: INSULIN LISPRO 100 UNIT/ML SUBCUT SCH ×4 (07:20→21:39)
[2020-02-01] MEDS ORDERED: propofoL 200 MG/20 ML VIAL IV ONE (09:00)
[2020-02-01] MEDS ORDERED: LIDOCAINE 2% 5 ML VIAL ONE (09:00)
[2020-02-01] MEDS ORDERED: ETOMIDATE 20 MG/10 ML VIAL IV ONE (09:00)
[2020-02-01] MEDS: LACTATED RINGERS 1,000 ML IV SCH (09:26)
[2020-02-01] MEDS: MAGNESIUM CHLORIDE 64 MG TABLET PO SCH (10:38)
[2020-02-01] MEDS ORDERED: DIAZEPAM 5 MG TABLET PO ONE (11:13)
[2020-02-01] MEDS ORDERED: SODIUM CHLORIDE 0.9% 1,000 ML IV PRN (13:15)
[2020-02-01] MEDS: SODIUM CHLORIDE 0.45% 1,000 ML IV SCH (13:52)
[2020-02-01 20:06] LABS: Hematocrit 22.3 VOL% (42.0-52.0); Hemoglobin 7.1 GM/DL (14.0-18.0)
[2020-02-02 05:20] LABS: Basophils % 0.5 % (0.0-0.8); Eosinophils # 0.2 10*3/uL (0.0-0.87); Eosinophils % 3.7 % (0.00-10.9); Hematocrit 19.4 VOL% (42.0-52.0); Immature Granulocytes % 0.8 %; Immature Granulocytes Absolute 0.05 #; Lymphocytes # 1.7 10*3/uL (1.4-4.0); Lymphocytes % 27.6 % (21.2-54.2); Mean Corpuscular Volume 87.8 FL (87-102); Mean Platelet Volume 8.8 FL (9.6-12.0); NRBC # 0.04 10*3/uL; Neutrophils % 57.4 % (38.7-73.9); Platelet Count 212 T/CUMM (130-400); Red Blood Count 2.21 MC/CUMM (3.8-5.5); Red Cell Distribution Width 15.9 % (9.3-17.3)
[2020-02-02 05:36] LABS: Hemoglobin 6.2 GM/DL (14.0-18.0)
[2020-02-02 06:05] LABS: Calcium 7.9 MG/DL (8.5-10.1); Osmolality,Calculated 278.4 MOS/KG (273-304)
[2020-02-02] MEDS: INSULIN LISPRO 100 UNIT/ML SUBCUT SCH ×4 (08:13→21:19)
[2020-02-02] MEDS: MAGNESIUM CHLORIDE 64 MG TABLET PO SCH (09:24)
[2020-02-02] MEDS: LACTATED RINGERS 1,000 ML IV SCH (09:47)
[2020-02-02] MEDS ORDERED: SODIUM CHLORIDE 0.9% 1,000 ML IV PRN (09:59)
[2020-02-02] MEDS: SODIUM CHLORIDE 0.45% 1,000 ML IV SCH (12:47)
[2020-02-02] MEDS: PANTOPRAZOLE INJ 200 MG in SODIUM CHLORIDE 0.9% 250 ML IV SCH (17:12)
[2020-02-02] MEDS: MORPHINE 4 MG/1 ML VIAL IV PRN (19:39)
[2020-02-03] MEDS: MORPHINE 4 MG/1 ML VIAL IV PRN ×2 (00:06→19:44)
[2020-02-03 05:43] LABS: Basophils % 0.5 % (0.0-0.8); Eosinophils # 0.2 10*3/uL (0.0-0.87); Hematocrit 30.4 VOL% (42.0-52.0); Hemoglobin 9.9 GM/DL (14.0-18.0); Immature Granulocytes % 0.8 %; Immature Granulocytes Absolute 0.05 #; Lymphocytes # 1.1 10*3/uL (1.4-4.0); Lymphocytes % 17.4 % (21.2-54.2); Mean Corpuscular HGB Conc 32.6 GM/DL (32-36); Mean Corpuscular Volume 88.6 FL (87-102); Mean Platelet Volume 8.9 FL (9.6-12.0); Monocytes % 8.9 % (1.7-12.7); NRBC # 0.02 10*3/uL; Neutrophils % 69.4 % (38.7-73.9); Platelet Count 216 T/CUMM (130-400); Red Blood Count 3.43 MC/CUMM (3.8-5.5); Red Cell Distribution Width 15.7 % (9.3-17.3); White Blood Count 6.3 T/CUMM (4-12)
[2020-02-03 05:45] LABS: Basophils % 0.3 % (0.0-0.8); Eosinophils # 0.2 10*3/uL (0.0-0.87); Eosinophils % 2.6 % (0.00-10.9); Hematocrit 30.3 VOL% (42.0-52.0); Immature Granulocytes % 0.6 %; Immature Granulocytes Absolute 0.04 #; Lymphocytes # 1.1 10*3/uL (1.4-4.0); Lymphocytes % 17.2 % (21.2-54.2); Mean Corpuscular Volume 88.1 FL (87-102); Mean Platelet Volume 8.6 FL (9.6-12.0); Monocytes % 9.4 % (1.7-12.7); NRBC # 0.02 10*3/uL; Neutrophils % 69.9 % (38.7-73.9); Platelet Count 207 T/CUMM (130-400); Red Blood Count 3.44 MC/CUMM (3.8-5.5); Red Cell Distribution Width 15.8 % (9.3-17.3); White Blood Count 6.2 T/CUMM (4-12)
[2020-02-03 06:00] LABS: Calcium 8.4 MG/DL (8.5-10.1); Osmolality,Calculated 277.3 MOS/KG (273-304)
[2020-02-03 06:03] LABS: % Iron Saturation 20.7 % (18-50); Ferritin 722.9 ng/ml (26-388)
[2020-02-03 06:16] LABS: Folate 10.8 NG/ML (5.4-24.0); Vitamin B12 884 PG/ML (211-911)
[2020-02-03 06:54] LABS: Sedimentation Rate-Westergren 22 MM/HR (0-20)
[2020-02-03] MEDS: INSULIN LISPRO 100 UNIT/ML SUBCUT SCH ×4 (07:26→21:51)
[2020-02-03] MEDS: MAGNESIUM CHLORIDE 64 MG TABLET PO SCH (08:23)
[2020-02-03] MEDS: LACTATED RINGERS 1,000 ML IV SCH (10:12)
[2020-02-03] MEDS: SODIUM CHLORIDE 0.45% 1,000 ML IV SCH (12:09)
[2020-02-03 16:40] LABS: Hemoglobin A1 (Alkaline) 97.5 % (96.5-98.5); Hemoglobin A2 (Alkaline) 2.5 % (1.5-3.5)
[2020-02-04] MEDS: MORPHINE 4 MG/1 ML VIAL IV PRN ×3 (00:21→22:57)
[2020-02-04 05:50] LABS: Basophils % 0.4 % (0.0-0.8); Eosinophils # 0.1 10*3/uL (0.0-0.87); Hematocrit 29.5 VOL% (42.0-52.0); Hemoglobin 9.6 GM/DL (14.0-18.0); Immature Granulocytes % 0.4 %; Immature Granulocytes Absolute 0.02 #; Lymphocytes # 1.4 10*3/uL (1.4-4.0); Lymphocytes % 25.8 % (21.2-54.2); Mean Corpuscular HGB Conc 32.5 GM/DL (32-36); Mean Corpuscular Volume 88.9 FL (87-102); Mean Platelet Volume 8.6 FL (9.6-12.0); Monocytes % 9.8 % (1.7-12.7); Neutrophils % 61.6 % (38.7-73.9); Platelet Count 215 T/CUMM (130-400); Red Blood Count 3.32 MC/CUMM (3.8-5.5); Red Cell Distribution Width 15.8 % (9.3-17.3); White Blood Count 5.4 T/CUMM (4-12)
[2020-02-04 06:12] LABS: Calcium 8.3 MG/DL (8.5-10.1); Osmolality,Calculated 279.1 MOS/KG (273-304)
[2020-02-04] MEDS: PANTOPRAZOLE 40 MG TABLET PO SCH (09:40)
[2020-02-04] MEDS: MAGNESIUM CHLORIDE 64 MG TABLET PO SCH (09:41)
[2020-02-04] MEDS: INSULIN LISPRO 100 UNIT/ML SUBCUT SCH ×4 (10:07→21:50)
[2020-02-04] MEDS: LACTATED RINGERS 1,000 ML IV SCH (10:07)
[2020-02-04] MEDS: SODIUM CHLORIDE 0.45% 1,000 ML IV SCH (10:47)
[2020-02-04] MEDS: POTASSIUM CHLORIDE 20 MEQ TABLET PO PRN ×4 (11:02→17:07)
[2020-02-05] MEDS: MORPHINE 4 MG/1 ML VIAL IV PRN ×2 (02:03→05:11)
[2020-02-05 05:16] LABS: Basophils % 0.3 % (0.0-0.8); Eosinophils # 0.2 10*3/uL (0.0-0.87); Eosinophils % 3.2 % (0.00-10.9); Hematocrit 31.2 VOL% (42.0-52.0); Hemoglobin 10.1 GM/DL (14.0-18.0); Immature Granulocytes % 0.5 %; Immature Granulocytes Absolute 0.03 #; Lymphocytes # 1.5 10*3/uL (1.4-4.0); Lymphocytes % 23.6 % (21.2-54.2); Mean Corpuscular HGB Conc 32.4 GM/DL (32-36); Mean Corpuscular Volume 89.4 FL (87-102); Mean Platelet Volume 8.8 FL (9.6-12.0); Monocytes % 10.9 % (1.7-12.7); Neutrophils % 61.5 % (38.7-73.9); Platelet Count 213 T/CUMM (130-400); Red Blood Count 3.49 MC/CUMM (3.8-5.5); Red Cell Distribution Width 15.7 % (9.3-17.3); White Blood Count 6.5 T/CUMM (4-12)
[2020-02-05 05:32] LABS: Calcium 8.5 MG/DL (8.5-10.1); Osmolality,Calculated 279.3 MOS/KG (273-304)
[2020-02-05] MEDS: LACTATED RINGERS 1,000 ML IV SCH (07:18)
[2020-02-05] MEDS: INSULIN LISPRO 100 UNIT/ML SUBCUT SCH ×2 (09:59→11:24)
[2020-02-05] MEDS: PANTOPRAZOLE 40 MG TABLET PO SCH (10:01)
[2020-02-05] MEDS: MAGNESIUM CHLORIDE 64 MG TABLET PO SCH (10:01)
[2020-02-05] MEDS: SODIUM CHLORIDE 0.45% 1,000 ML IV SCH (11:24)
[2020-02-05 12:03] VITALS: BP 126/69
[2020-02-05 16:20] LABS: Soluble Transf Receptor (sTfR) 3.8 mg/L (1.8 - 4.6)
== END 2020-02-05 15:32 | DRG 356 ==
LOC: N.ED 22:24 → SUATTDRO 01-31 01:16 → N.EDINP 01-31 01:16 → N.TELES 01-31 02:16
PROVIDERS: ADMIT Hospitalist; ATTEND Family Medicine